=== PATIENT | male | born 1975 ===

== ENCOUNTER 2017-11-28 12:36 | Emergency (ER) | payer OTHER ==
[~2017-11-28] VITALS: Ht 180.3 cm; Wt 95.3 kg
[2017-11-28] MEDS ORDERED: MEDROLPACK PO (15:19)
[2017-11-28] MEDS ORDERED: NORFLEX100MG PO (15:19)
== END 2017-11-28 15:44 | disposition home or self-care (01) ==
LOC: ER 12:36
DX: M54.2 Cervicalgia (principal)